=== PATIENT | female | born 2000 | race Caucasian/White ===

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

== ENCOUNTER 2019-04-23 16:45 | Emergency (ER) | payer OTHER ==
--- NOTE | 2019-04-23 17:13 | ED.PDOC ---
History of Present Illness - General Chief Complaint: Abdominal Pain Stated Complaint: Pelvic, abdominal pain, preg with spotting Time Seen by Provider: 04/23/19 17:01 Source: patient, family - History of Present Illness Initial Comments: 18 yo female, with LMP in December and states she is 12 weeks . Has not had any OB care. Presents with 2 day h/o pelvic cramping and 1 month h/o intermittent vaginal spotting. Denies having to wear a pad or tampon. Was seen in [place] ED 1 month ago for similar complaints and told she was and recommended to f/u with OB for OB US, but she has not yet. Denies fever, chills, nausea, vomiting, dysuria, hematuria or frequency. Improving Factors: nothing Worsening Factors: nothing Allergies/Adverse Reactions: Allergies NO KNOWN ALLERGY Allergy (Verified 04/23/19 17:13) Review of Systems - Review of Systems Constitutional: Denies: chills, fever, weakness EENTM: Denies: blurred vision, ear pain, nose congestion, throat pain Respiratory: Denies: cough, short of breath Cardiology: Denies: chest pain, palpitations Gastrointestinal/Abdominal: Denies: diarrhea, nausea, vomiting Genitourinary: Denies: discharge, dysuria, frequency, hematuria All other Systems: Reviewed and Negative Past Medical History (General) - Patient Medical History Hx Seizures: No Hx Stroke: No Hx Dementia: No Hx Asthma: No Hx of COPD: No Hx Cardiac Disorders: No Hx Congestive Heart Failure: No Hx Pacemaker: No Hx Hypertension: No Hx Thyroid Disease: No Hx Diabetes: No Hx Gastroesophageal Reflux: No Hx Renal Disease: No Hx Cancer: No Hx of HIV: No Hx Hepatitis C: No Hx MRSA: No - Vaccination History Hx Tetanus, Diphtheria Vaccination: Yes Hx Influenza Vaccination: Yes Hx Pneumococcal Vaccination: Yes - Social History Hx Tobacco Use: No Hx Chewing Tobacco Use: No Hx Alcohol Use: No Hx Substance Use: No Hx Substance Use Treatment: No Hx Depression: No Hx Physical Abuse: No Hx Emotional Abuse: No Hx Suspected Abuse: No - Female History Hx Last Menstrual Period: 10/24/17 Patient : No Family Medical History - Family History Mother Living Status: Still Living Hx Family Asthma: No Hx Family Congestive Heart Failure: No Hx Family Hypertension: No Hx Family Stroke: No Hx Cardiac Disease: No Hx Family Diabetes: No - several relatives Hx Family Cancer: No Physical Exam - Physical Exam General Appearance: Alert, Comfortable, No apparent distress Eyes, Ears, Nose, Throat Exam: pharynx normal Neck: non-tender, full range of motion, supple Cardiovascular/Respiratory: regular rate, rhythm, normal peripheral pulses, normal breath sounds, no respiratory distress Gastrointestinal/Abdominal: soft, other - mild TTP suprapubic area. No guarding or rigidity Back Exam: no CVA tenderness, no vertebral tenderness Extremity: normal range of motion, non-tender, normal inspection, no pedal edema Neurologic: alert, normal mood/affect Skin Exam: normal color, warm/dry Progress - Progress Progress: 04/23/19 17:15 Oh Casiano #[id number] 04/23/19 18:25 BEDSIDE ULTRASOUND OB bedside US performed by me. There is an IUP with cardiac activity in 150's 04/23/19 18:32 Pt has pelvic pain and spotting. Labs and VS reassuring and bedside US shows IUP with cardiac activity of 150's. I have discussed threatened miscarriage with pt and mother. Pelvic rest and bleeding precautions given. Will start PNV and she will f/u with OB in 1-2 days for ongoing care. SRP given. Departure - Departure Clinical Impression: Threatened , Pelvic pain Time of Disposition: 18:35 Disposition: Discharge to Home or Self Care Condition: Good Departure Forms: ED Discharge - Pt. Copy, Patient Portal Self Enrollment Instructions: Threatened Miscarriage (DC) Comments: You will need to follow up with an OB within 1 week. Return for increased pain or bleeding. You may take Tylenol for pain as needed.
[2019-04-23] MEDS: SODIUM CHLORIDE 0.9% 1000ML 1,000 ML IVS ONE (17:19)
[2019-04-23] MEDS: ACETAMINOPHEN 325 MG TAB PO ONE (17:20)
[2019-04-23 18:48] VITALS: BP 124/76; TEMP 97; O2SAT 100
== END 2019-04-23 18:48 | disposition home or self-care (01) ==
LOC: ER 16:45
DX: O20.0 Threatened abortion (principal); O99.89 Other specified diseases and conditions complicating pregnancy, childbirth and the puerperium; R10.2 Pelvic and perineal pain; Z3A.12 12 weeks gestation of pregnancy
CPT/HCPCS: 36415; 80048; 81001; 81025; 84702; 85025; J7030

== ENCOUNTER → 2019-04-27 | Outpatient (CLI) | payer OTHER | LOC: LAB.O 15:09 | PROVIDERS: ATTEND Obstetrics & Gynecology | DX: Z34.91 Encounter for supervision of normal pregnancy, unspecified, first trimester (principal); Z3A.00 Weeks of gestation of pregnancy not specified ==

== ENCOUNTER 2019-12-06 00:14 | Emergency (ER) | payer OTHER ==
--- NOTE | 2019-12-06 00:40 | ED.PDOC ---
History of Present Illness - General Chief Complaint: Abdominal Pain Stated Complaint: bloating, constipation pain Time Seen by Provider: 12/06/19 00:33 Information Source: patient Exam Limitations: no limitations - History of Present Illness Initial Comments: ABD PAIN. STARTED YESTERDAY, LASTED LESS THAN 1 HR. THEN STOPPED AND WAS FINE ALL DAY TODAY. THEN STARTED TONIGHT, 1 HR [employer]. LUQ. POS NAUSEA. NO VOMITING/D/C. NO DYSURIA. CAN'T FIND COMFORTABLE POSITION, THOUGH IF LEANS FWD IT HELPS SLIGHTLY. IBUPROFEN DIDN'T HELP. QUALITY: FEELS LIKE A GAS PAIN AND SHARP PAIN. IT TAKES HER BREATH AWAY. JUST GAE TO BABY GIRL IN OCTOBER, 1 MO AGO. Abdominal Pain Onset Location: LUQ Pain Radiation: flank Quality: severe, intermittent, sharpness Timing/Duration: 1 hour Improving Factors: movement Worsening Factors: nothing Associated Symptoms: other - NAUSEA Review of Systems - Review of Systems Constitutional: Denies: chills, fever EENTM: States: no symptoms reported Respiratory: Denies: cough, short of breath Cardiology: Denies: chest pain, palpitations Gastrointestinal/Abdominal: States: abdominal pain, nausea. Denies: constipation, diarrhea, vomiting Genitourinary: Denies: dysuria, frequency, hematuria Musculoskeletal: Denies: back pain, joint pain Skin: States: no symptoms reported Neurological: States: no symptoms reported Endocrine: States: no symptoms reported Hematologic/Lymphatic: States: no symptoms reported All other Systems: Reviewed and Negative Past Medical History (General) - Patient Medical History Hx Seizures: No Hx Stroke: No Hx Dementia: No Hx Asthma: No Hx of COPD: No Hx Cardiac Disorders: No Hx Congestive Heart Failure: No Hx Pacemaker: No Hx Hypertension: No Hx Thyroid Disease: No Hx Diabetes: No Hx Gastroesophageal Reflux: No Hx Renal Disease: No Hx Cancer: No Hx of HIV: No Hx Hepatitis C: No Hx MRSA: No Surgical History: no surgical history - Vaccination History Hx Tetanus, Diphtheria Vaccination: Yes Hx Influenza Vaccination: Yes Hx Pneumococcal Vaccination: No - Social History Hx Tobacco Use: No Hx Chewing Tobacco Use: No Hx Alcohol Use: No Hx Substance Use: No Hx Substance Use Treatment: No Hx Depression: No Hx Physical Abuse: No Hx Emotional Abuse: No Hx Suspected Abuse: No - Female History Hx Last Menstrual Period: 10/24/17 Patient : No Family Medical History - Family History Mother Living Status: Still Living Hx Family Asthma: No Hx Family Congestive Heart Failure: No Hx Family Hypertension: No Hx Family Stroke: No Hx Cardiac Disease: No Hx Family Diabetes: No - several relatives Hx Family Cancer: No Physical Exam - Physical Exam General Appearance: Alert, Obvious distress, Obese Eyes, Ears, Nose, Throat Exam: PERRL/EOMI, normal ENT inspection Neck: non-tender, full range of motion Respiratory: lungs clear, normal breath sounds, no respiratory distress Cardiovascular/Chest: normal peripheral pulses, regular rate, rhythm Peripheral Pulses: No deficit Gastrointestinal/Abdominal: normal bowel sounds, soft, no organomegaly, no pulsatile mass, tenderness - LUQ AND L FLANK. Back Exam: CVA tenderness (L) Extremity: normal range of motion, normal inspection, other - NO ABD PAIN FROM THUMPING ON BL HEELS. Neurologic: no motor/sensory deficits, alert Skin Exam: normal color, warm/dry Lymphatic: no adenopathy Progress - Progress Progress: 12/06/19 01:38 UA SHOWS UTI WITH LEUK ESTERASE, WBC, BACTERIA. GIVING ROCEPHIN IN ER AND RX OF BACTRIM DS. hcg neg. cbc MILD ANEMIA. CMP NEG. LIPASE JUST SLIGHTLY ELEV AT 68 BUT NOT ENOUGH TO BE CLINICALLY SIGNIFICANT IN TERMS OF CAUSING PAINS IN THE PANCREAS. PT STATES HER PAIN IMPROVED SUDDENLY WITHOUT ANY PAIN MEDS AND HAS REMAINED PAIN FREE IN THE ER, THUS THE DILAUDID WAS NOT GIVEN. CT NEG FOR LUQ PAIN. NO STONE. EARLY POSSIBLE GALLBLADDER DISTENTION, WHICH WOULD CAUSE RUQ PAIN, OF WHICH PT HAS NONE, THUS IT IS NOT THE ETX OF HER ACUTE LUQ PAIN TONIGHT. SAFE FOR DC TO HOME Departure - Departure Clinical Impression: Acute LUQ pain, Nausea alone UTI (urinary tract infection) Qualifiers: Urinary tract infection type: acute cystitis Hematuria presence: without hematuria Qualified Code(s): N30.00 - Acute cystitis without hematuria Disposition: Discharge to Home or Self Care Condition: Good Departure Forms: ED Discharge - Pt. Copy, Patient Portal Self Enrollment Instructions: Urinary Tract Infection, Adult (DC) Diet: resume usual diet Activity: increase activity as tolerated Referrals: FERNANDA BRASHER MD/OBGYN [Primary Care Provider] - 1-2 Weeks Prescriptions: Sulfa/Trimeth 800/160 (Ds) Tab [Bactrim DS Tab] 1 unit PO BID #6 tab Home Medications: Ambulatory Orders Sulfa/Trimeth 800/160 (Ds) Tab [Bactrim DS Tab] 1 unit PO BID #6 tab 12/06/19 Additional Instructions: AZO is a medicine you can buy without a prescription at the pharmacy for the urinary tract pains.
[2019-12-06] MEDS: SODIUM CHLORIDE 0.9% 1000ML 1,000 ML IVS ONE (00:44)
[2019-12-06 01:01] VITALS: O2SAT 99
--- NOTE | 2019-12-06 01:29 | CT ---
CT abdomen and pelvis without contrast on 12/06/2019 CLINICAL INDICATION: Acute left upper quadrant pain TECHNIQUE: Multiple axial images are obtained throughout the abdomen and pelvis without the administration of contrast. This exam was performed according to our departmental dose-optimization program, which includes automated exposure control, adjustment of the mA and/or kV according to patient size and/or use of iterative reconstruction technique. Total DLP is 1415.86 mGy*cm. COMPARISON: None FINDINGS: Of note, the patient was scanned in prone positioning. Abdomen: The lung bases are clear. Gallbladder is mildly distended with some subtle fat stranding around the gallbladder wall raising a question of very early acute cholecystitis, recommend correlation with right upper quadrant ultrasound. There are no renal or ureteral stones and no hydronephrosis. The unenhanced solid abdominal organs are otherwise unremarkable. There is no abdominal adenopathy. There is no free fluid or free air within the abdomen. The abdominal portion of the GI tract is unremarkable. Pelvis: The uterus is retroverted/retroflexed. Pelvic organs otherwise appear unremarkable by CT. No free fluid is noted in the pelvis. There is no pelvic adenopathy. The appendix is not definitely visualized but no pericecal inflammatory changes are noted. Pelvic portion of the GI tract is unremarkable. No acute bony abnormality is noted. IMPRESSION: 1. Some subtle fat stranding around a mildly distended gallbladder raising question of very early acute cholecystitis, recommend follow-up right upper quadrant ultrasound. 2. Otherwise essentially unremarkable unenhanced exam. Electronically signed by: Vernon Redd 12/06/2019 1:27 AM CDT
[2019-12-06] MEDS ORDERED: LIDOCAINE 1% 2 ML VIAL INJ ONE (01:41)
[2019-12-06] MEDS: HYDROmorphone HCL INJ 2 MG/ML VIAL IV ONE (01:44)
[2019-12-06] MEDS: cefTRIAXone SODIUM 1 GM VIAL IM ONE (01:45)
[2019-12-06 02:07] VITALS: BP 131/93; TEMP 97.3
== END 2019-12-06 02:13 | disposition home or self-care (01) ==
LOC: ER 00:14
DX: N30.00 Acute cystitis without hematuria (principal); R10.12 Left upper quadrant pain; R11.0 Nausea
CPT/HCPCS: 36415; 74176; 80053; 81001; 83690; 84703; 85025; 87086; J0696; J7030

== ENCOUNTER → 2020-05-27 | Outpatient (CLI) | payer OTHER | LOC: YCFC.O 14:54 | PROVIDERS: ATTEND Family Medicine | DX: Z03.818 Encounter for observation for suspected exposure to other biological agents ruled out (principal) ==

== ENCOUNTER → 2020-09-26 | Outpatient (CLI) | payer OTHER | LOC: YCFC.O 15:59 | PROVIDERS: ATTEND Family Medicine | DX: R53.83 Other fatigue (principal); K11.7 Disturbances of salivary secretion ==